=== PATIENT | female | born 1965 | race Caucasian/White ===

== ENCOUNTER → 2017-02-02 | Outpatient (CLI) | payer OTHER ==
[~2017-02-02] MED LIST: DECONGESTANT30 MG PO; FEXOFENADINE180 MG PO; LEVOTHYROXIN0.125 MG PO; LORTAB 5/500 501 TAB PO; SINGULAIR10 MG PO
== END ==
LOC: MC.RAD 07:20
DX: Z12.31 Encounter for screening mammogram for malignant neoplasm of breast (principal)

== ENCOUNTER → 2018-03-04 | Outpatient (CLI) | payer BC | LOC: MC.RAD 13:32 | DX: Z12.31 Encounter for screening mammogram for malignant neoplasm of breast (principal) ==

== ENCOUNTER → 2018-03-11 | Outpatient (CLI) | payer BC | LOC: MC.RAD 07:24 | DX: R92.8 Other abnormal and inconclusive findings on diagnostic imaging of breast (principal) ==

== ENCOUNTER → 2018-03-15 | Outpatient (CLI) | payer BC | LOC: MC.RAD 09:43 | DX: N60.21 Fibroadenosis of right breast (principal); N60.41 Mammary duct ectasia of right breast ==

== ENCOUNTER → 2018-07-29 | Outpatient (CLI) | payer BC | LOC: COL.VAS 09:14 | DX: I50.9 Heart failure, unspecified (principal); I34.0 Nonrheumatic mitral (valve) insufficiency; I51.7 Cardiomegaly; R60.0 Localized edema ==

== ENCOUNTER → 2019-04-10 | Outpatient (CLI) | payer BC | LOC: MC.RAD 07:08 | DX: Z12.31 Encounter for screening mammogram for malignant neoplasm of breast (principal) ==

== ENCOUNTER → 2021-09-24 | Outpatient (CLI) | payer BC | LOC: MC.RAD 07:30 | DX: Z12.31 Encounter for screening mammogram for malignant neoplasm of breast (principal) ==

== ENCOUNTER → 2022-10-27 | Outpatient (CLI) | payer BC | LOC: COL.RAD 08:34 | DX: M19.071 Primary osteoarthritis, right ankle and foot (principal) | CPT/HCPCS: J3301; Q9967 ==

== ENCOUNTER → 2022-12-10 | Outpatient (CLI) | payer BC | LOC: MC.RAD 09:03 | DX: Z12.31 Encounter for screening mammogram for malignant neoplasm of breast (principal) ==

== ENCOUNTER → 2023-12-23 | Outpatient (CLI) | payer BC ==
[~2023-12-23] MED LIST changes: +CARDIZEM CD 24240 MG PO; +COZAAR 50MG50 MG/TAB PO; +NORVASC 5MG5 MG/TAB PO; +PROTONIX 40MG T40 MG PO; +SINGULAIR 110 MG/TAB PO; +SYNTHROID 0.10.15 MG PO
== END ==
LOC: MC.RAD 16:30
DX: Z12.31 Encounter for screening mammogram for malignant neoplasm of breast (principal)